=== PATIENT | female | born 1935 | race Caucasian/White ===

== ENCOUNTER 2016-07-12 20:23 | Emergency (ER) | payer MEDICARE, OTHER ==
[2016-07-12 20:51] VITALS: TEMP 98.5; BMI 27.2
[2016-07-12] MEDS ORDERED: MORPHINE 4 MG/ML INJECTION IV ONE (21:20)
[2016-07-12] MEDS ORDERED: ONDANSETRON HCL 4 MG/2 ML VIAL IV ONE (21:20)
[2016-07-12] MEDS ORDERED: NS 1,000 ML IV ONE (21:20)
--- NOTE | 2016-07-12 21:23 | EDPRACDOC ---
- General Information Mode Of Arrival: Car - History of Present Illness Onset: 5-6 months <Laurence Kim - Last Filed: 07/12/16 21:23> - History of Present Illness Pain Location: Reports: Diffuse, Epigastric Pain Context: Reports: After Eating Pain Severity: Moderate Pain Quality: Reports: Cramping, Sharp Pain Radiation: Reports: No Radiation Adult Abdominal History: Reports: Abdominal Surgery Female Abdominal History: Reports: Abdominal Surgery Modifying Factors: improves with: Nothing Female Associated Signs & Symptoms: Reports: Diarrhea Oral Intake: Normal Urinary Output: Normal <Wilson Cornelius - Last Filed: 07/13/16 04:11> - General Information Chief Complaint: Abdominal Pain Stated Complaint: ABDOMINAL PAIN X5 MONTHS Time Seen by Provider: 07/12/16 21:10 Home Medications: Home Medications Calcium Carbonate + Vitamin D [Oscal with Vitamin D] 500 mg PO DAILY 10/15/12 Docosahexanoic Acid/Epa [Fish Oil Softgel] 1 cap PO DAILY 10/15/12 Atorvastatin Calcium 40 mg PO QHS 07/12/16 Dicyclomine HCl [Bentyl] 20 mg PO Q6H PRN #30 tab 07/12/16 Metoprolol Tartrate [Lopressor] 12.5 mg PO DAILY 07/12/16 Spironolact/Hydrochlorothiazid [Spironolactone-Hctz 25-25 Tab] 0.5 tab PO DAILY 07/12/16 Allergies/Adverse Reactions: Allergies Allergy/AdvReac Type Severity Reaction Status Date / Time No Known Allergies Allergy Verified 07/12/16 20:51 - History of Present Illness HPI: C/o diarrhea daily after eating or drinking with diffuse abdo pain x 5-6 months. 5x today. Denies blood in diarrhea, fever, N/V, cp, sob, change in urine. Med hx = Hiatal hernia, HTN, HDL. Surgical hx= amador, hysterectomy, both over 12 yrs ago. (Wilson Cornelius) ED Past Medical History - Patient Medical History Cardiac History: Reports: Coronary Artery Disease, Hypertension, Hypercholesterolemia Systemic History: Denies: Cancer Surgical History: Reports: Appendectomy, Cholecystectomy, Hysterectomy - Family Medical History Denies: Hypertension, Diabetes, Cancer, Stroke, Cardiac Disorders <Laurence Kim - Last Filed: 07/12/16 21:23> - History Reviewed Yes Nurses notes reviewed and agree except as marked <Wilson Cornelius - Last Filed: 07/13/16 04:11> EDM Review of Systems - Review of Systems ROS Negative Except as Marked: Yes All systems reviewed and were negative except as marked Gastrointestinal: Diarrhea, Pain <Wilson Cornelius - Last Filed: 07/13/16 04:11> - Physical Exam Constitutional: No apparent distress, Alert Oriented to: Time, Person, Place - HEENT Head: Normal Eye Exam: negative: Conjunctival Injection, Scleral Icterus Oropharynx: negative: Drooling TMJ: Normal Nose: No Symptoms Reported Neck: Normal - Respiratory/Cardiovascular Respiratory: Normal - CTA Cardiovascular: Normal - GI Auscultation: Normal Palpation: Normal Tenderness: Diffuse, Epigastric (epigastric > other areas) - Musculoskeletal Back: Normal Extremities: Normal - Integumentary Skin: Normal - Neurologic Mood Description: Normal Thought: Coherent Perception: Normal <Wilson Cornelius - Last Filed: 07/13/16 04:11> - Physical Exam Last recorded Vital Signs: Last Vital Signs Temp 98.5 F 07/12/16 20:43 Pulse 63 07/12/16 23:05 Resp 18 07/12/16 23:05 BP 132/71 07/12/16 23:05 Pulse Ox 95 07/12/16 23:05 Oxygen Pulse Oxygen Saturation 95 O2 Device Room Air Oxygen Flow Rate Fraction of Inspired Oxygen ( FIO2) (Laurence Kim) (Wilson Cornelius) - Results 07/12/16 21:44 07/12/16 22:05 <Wilson Cornelius - Last Filed: 07/13/16 04:11> - Results WBC 8.8 xk/uL (3.8-10.8) 07/12/16 21:44 RBC 5.04 xM/uL (4.20-5.40) 07/12/16 21:44 Hgb 14.7 g/dL (12.0-16.0) 07/12/16 21:44 Hct 43.4 % (36-47) 07/12/16 21:44 MCV 86 fL (81-99) 07/12/16 21:44 MCH 29.2 pg (27-32) 07/12/16 21:44 MCHC 33.9 g/dl (33-36) 07/12/16 21:44 RDW 14.5 % (11.5-14.5) 07/12/16 21:44 Plt Count 248 xk/uL (130-400) 07/12/16 21:44 MPV 8.6 fL (7.4-10.4) 07/12/16 21:44 Neut % (Auto) 59.3 % (45-76) 07/12/16 21:44 Lymph % (Auto) 28.0 % (17-44) 07/12/16 21:44 [place] % (Auto) 9.0 % (3-10) 07/12/16 21:44 Eos % (Auto) 2.3 % (0-5) 07/12/16:44 Baso % (Auto) 1.4 % (0-2) 07/12/16 21:44 Absolute Neuts (auto) 5.19 xk/uL (1.7-8.2) 07/12/16 21:44 Absolute Lymphs (auto) 2.46 xk/uL (0.65-4.75) 07/12/16 21:44 Sodium 140 mEq/L (137-146) 07/12/16 22:05 Potassium 3.6 mEq/L (3.5-5.1) 07/12/16 22:05 Chloride 104 mEq/L (98-107) 07/12/16 22:05 Carbon Dioxide 26 mMOL/L (22-33) 07/12/16 22:05 Anion Gap 14 mEq/L (8-16) 07/12/16 22:05 BUN 23 MG/DL (7-17) H 07/12/16 22:05 Creatinine 1.00 MG/DL (0.52-1.04) 07/12/16 22:05 Estimated GFR (MDRD) 53 mL/min (>=60) L 07/12/16 22:05 Glucose 122 MG/DL (70-99) H 07/12/16 22:05 Calculated Osmolality 274 MOs/Kg (270-290) 07/12/16 22:05 Calcium 9.4 MG/DL (8.4-10.2) 07/12/16 22:05 Corrected Calcium 9.7 MG/DL (8.4-10.2) 07/12/16 22:05 Total Bilirubin 0.4 MG/DL (0.2-1.3) 07/12/16 22:05 AST 18 IU/L (14-36) 07/12/16 22:05 ALT 40 IU/L (9-52) 07/12/16 22:05 Alkaline Phosphatase 115 IU/L (55-165) 07/12/16 22:05 Total Protein 6.3 G/DL (6.3-8.2) 07/12/16 22:05 Albumin 3.7 G/DL (3.5-5.0) 07/12/16 22:05 Urine Color Yellow 07/12/16 21:53 Urine Clarity Sl hzy 07/12/16 21:53 Urine pH 5.0 (5.0-8.0) 07/12/16 21:53 Ur Specific [place] 1.015 (1.003-1.035) 07/12/16 21:53 Urine Protein Neg (NEG/TRACE) 07/12/16 21:53 Urine Glucose (UA) Neg (NEGATIVE) 07/12/16 21:53 Urine Ketones Neg (NEGATIVE) 07/12/16 21:53 Urine Occult Blood Neg (NEG/TRACE) 07/12/16 21:53 Urine Nitrite Neg (NEGATIVE) 07/12/16 21:53 Urine Bilirubin Neg (NEGATIVE) 07/12/16 21:53 Urine Urobilinogen <2.0 MG/DL (0-1) 07/12/16 21:53 Ur Leukocyte Esterase Neg (NEGATIVE) 07/12/16 21:53 Urine WBC 0-2 (0-5) 07/12/16 21:53 Ur Epithelial Cells 2+ 07/12/16 21:53 Urine Bacteria 4+ (NEG/FEW) H 07/12/16 21:53 Urine Mucus Occ (NEG/OCC) 07/12/16 21:53 Lab Results 07/12/16 07/12/16 07/12/16 22:05 21:53 21:44 WBC 8.8 RBC 5.04 Hgb 14.7 Hct 43.4 MCV 86 MCH 29.2 MCHC 33.9 RDW 14.5 Plt Count 248 MPV 8.6 Neut % (Auto) 59.3 Lymph % (Auto) 28.0 [place] % (Auto) 9.0 Eos % (Auto) 2.3 Baso % (Auto) 1.4 Absolute Neuts (auto) 5.19 Absolute Lymphs (auto) 2.46 Sodium 140 Potassium 3.6 Chloride 104 Carbon Dioxide 26 Anion Gap 14 BUN 23 H Creatinine 1.00 Estimated GFR (MDRD) 53 L Glucose 122 H Calculated Osmolality 274 Calcium 9.4 Corrected Calcium 9.7 Total Bilirubin 0.4 AST 18 ALT 40 Alkaline Phosphatase 115 Total Protein 6.3 Albumin 3.7 Urine Color Yellow Urine Clarity Sl hzy Urine pH 5.0 Ur Specific [place] 1.015 Urine Protein Neg Urine Glucose (UA) Neg Urine Ketones Neg Urine Occult Blood Neg Urine Nitrite Neg Urine Bilirubin Neg Urine Urobilinogen <2.0 Ur Leukocyte Esterase Neg Urine WBC 0-2 Ur Epithelial Cells 2+ Urine Bacteria 4+ H Urine Mucus Occ <Laurence Kim - Last Filed: 07/12/16 21:23> Decision Time to Discharge: 22:53 - Departure Disposition: Home Education/Counseling Given To: Patient Education/Counseling Given Regarding: Diagnosis, Treatment, Prognosis, Follow Up <Wilson Cornelius - Last Filed: 07/13/16 04:11> - Departure Condition: Stable Final Diagnosis: Diarrhea Qualifiers: Diarrhea type: unspecified type Qualified Code(s): R19.7 - Diarrhea, unspecified Instructions: Acute Diarrhea (ED), Acute Abdominal Pain (ED) Referrals: Darinel Blank MD [Primary Care Provider] - One Week Darinel Alarcon MD [Staff Physician] - One Week Prescriptions: Dicyclomine HCl [Bentyl] 20 mg PO Q6H PRN #30 tab PRN Reason: Abdominal Pain Additional Instructions: Follow up with primary care and GI specialist Dr Alarcon. Take bentyl for diarrhea cramping. Return to ED for any new or worsening symptoms.
[2016-07-12 21:50] LABS: AUTOMATED BASOPHIL 1.4 % (0-2); AUTOMATED EOSINOPHIL 2.3 % (0-5); AUTOMATED NEUTROPHIL 59.3 % (45-76); MPV 8.6 fL (7.4-10.4)
[2016-07-12 22:07] LABS: LEUKOCYTES/URINE NEG (NEGATIVE); NITRITE/URINE NEG (NEGATIVE); URINE OCCULT BLOOD NEG (NEG/TRACE); WBC/URINE 0-2 (0-5)
[2016-07-12 22:25] LABS: BLOOD UREA NITROGEN 23 MG/DL (7-17); CALC CORRECTED 9.7 MG/DL (8.4-10.2); CALCIUM 9.4 MG/DL (8.4-10.2); CALCULATED OSMOLALITY 274 MOs/Kg (270-290); CHLORIDE 104 mEq/L (98-107); GLUCOSE 122 MG/DL (70-99); SODIUM LEVEL 140 mEq/L (137-146); TOTAL PROTEIN 6.3 G/DL (6.3-8.2)
[2016-07-12 23:06] VITALS: BP 132/71; PULSE 63
== END 2016-07-12 23:05 | disposition home or self-care (01) ==
LOC: ED 20:23
DX: R19.7 Diarrhea, unspecified (principal)
CPT/HCPCS: 36415; 80053; 81001; 85025; 96361; 96374; 96375; 99284; J2270; J2405